=== PATIENT | female | born 1965 | race Caucasian/White ===

== ENCOUNTER 2017-05-13 17:17 | Emergency (ER) | payer BC ==
[2017-05-13 17:44] VITALS: BP 148/80
--- NOTE | 2017-05-13 19:04 | RAD ---
Indication: Right elbow injury. 4 views of the right elbow demonstrates a depressed fracture of the radial head. There is a joint effusion noted. IMPRESSION: Depressed fracture of the anterior half of the radial head. Joint effusion is noted.
--- NOTE | 2017-05-13 19:15 | RAD ---
Indication: Right wrist pain 3 views of the wrist demonstrates no fracture. No other bone or joint abnormality is identified. IMPRESSION: NO FRACTURE OF THE WRIST IS NOTED.
--- NOTE | 2017-05-13 19:15 | UC ---
Elbow Pain - HPI Summary HPI Summary: 52 y/o female presents to the urgent care accompany by Orthopedic DR Fox c/o RT elbow pain and Rt wrist pain s/p falling while ice skating today around 1630pm.. Pt reports she fell backwards. Pain is 5/10, sharp, specially with movement on pronation and supination. Associated with mild swelling and numbness over the RT elbow. Pt applied ice and took Naproxen to alleviate symptoms. Pt deneis fever, SOB, chest pain, abdominal pain, N/V/D. - History of Current Complaint Chief Complaint: UCUpperExtremity Stated Complaint: ARM INJURY Time Seen by Provider: 05/13/17 18:59 Hx Obtained From: Patient Hx Last Menstrual Period: menopausal ?: No Onset/Duration: Hours - 2hrs Severity Initially: Moderate Severity Currently: Moderate Pain Intensity: 5 Pain Scale Used: 0-10 Numeric Location Of Pain: Is Discrete @ - RT [place] dn RT wrist Character: Sharp Aggravating Factor(s): Movement Alleviating Factor(s): Rest, Ice, OTC Meds Associated Signs And Symptoms: Positive: Swelling. Negative: Bruising, Numbness /Tingling - Allergies/Home Medications Allergies/Adverse Reactions: Allergies Allergy/AdvReac Type Severity Reaction Status Date / Time Penicillins Allergy Hair Loss Verified 05/13/17 17:45 ENVIRONMENTAL/SEASONAL Allergy SINUS Uncoded 05/13/17 17:45 HAYFEVER ISSUES PMH/Surg Hx/FS Hx/Imm Hx Previously Healthy: Yes Cardiovascular History: Hypertension Psychological History: Anxiety - Surgical History Surgical History: Yes Surgery Procedure, Year, and Place: TUBAL LIGATION. TONSILS. LEFT KNEE ARTHROSCOPY 2012 - Family History Known Family History: Positive: Cardiac Disease, Hypertension - Social History Occupation: Employed Full-time Lives: With Family Alcohol Use: Occasionally Substance Use Type: None Smoking Status (MU): Former Smoker Review of Systems Constitutional: Negative Skin: Negative Eyes: Negative ENT: Negative Respiratory: Negative Cardiovascular: Negative Gastrointestinal: Negative Genitourinary: Negative Motor: Negative Neurovascular: Negative Musculoskeletal: Decreased ROM - RT elbow s/p fall, Other: - RT elbow pain and RT wrist pain s/p fall Neurological: Negative Psychological: Negative Is Patient Immunocompromised?: No All Other Systems Reviewed And Are Negative: Yes Physical Exam Triage Information Reviewed: Yes Vital Signs: Initial Vital Signs Temp 97.0 F 05/13/17 17:41 Pulse 55 05/13/17 17:41 Resp 16 05/13/17 17:41 BP 148/80 05/13/17 17:41 Pulse Ox 99 05/13/17 17:41 - Additional Comments Vital Signs Reviewed: Yes General: well developed, well nourished female sitting in the examining table w/ o any apparent distress. Eyes: Positive: Conjunctiva Clear - PERRLA, EOMI, ENT: Positive: Normal ENT inspection, Hearing grossly normal, Pharynx normal, TMs normal - B/L, Uvula midline Neck: Positive: Supple, Nontender, No Lymphadenopathy Respiratory: Positive: Chest non-tender, Lungs clear, Normal breath sounds, No respiratory distress, No accessory muscle use Cardiovascular: Positive: RRR, No Murmur, Pulses Normal, Brisk Capillary Refill Abdomen Description: Positive: Nontender, No Organomegaly, Soft. Negative: CVA Tenderness (R), CVA Tenderness (L) Bowel Sounds: Positive: Present Musculoskeletal: Positive: Strength Intact, RT Elbow: The R elbow is with mild deformity on the lateral side when compared to the L elbow. no ecchymosis, mild soft tissue swelling. Point tenderness to palpation of the lateral epicondyle, olecranon,and radial head. No epicondylar or axillary lymphadenopathy. Decreased ROM due to pain. Muscle strength. Intact motor and sensation of ulnar, median, and radial nerves. Neurological: Positive: Alert, Muscle Tone Normal Psychological Exam: Normal Skin Exam: Normal Elbow Pain Course/Dx - Course Course Of Treatment: 52 y/o female presents to the urgent care accompany by Orthopedic DR Fox c/o RT elbow pain and Rt wrist pain s/p falling while ice skating today around 1630pm.. Pt reports she fell backwards. Pain is 5/10, sharp , specially with movement on pronation and supination. Associated with mild swelling and numbness over the RT elbow. Pt applied ice and took Naproxen to alleviate symptoms. Pt deneis fever, SOB, chest pain, abdominal pain, N/V/D. Hx obtained. RT elbow X-ray and RT wrist X-ray ordered. Impressions: RT elbow: Depressed fracture of anterir half of radial head, with joint effusion noted. Rt wrist: No fracture noted. Orhtopedic DR Fox reviewed the X-ray results at the clinic and he recommended to place Pt in a shoulder sling and he will take Pt to his clinic immediately to splint the RT elbow. Pt Rx Naproxen PO for pain.Advised f/u with DR Fox.Pt's BP is elevated today advised to decrease salt in diet, monitor BP and f/u with PCP for further management. Pt understood and agreed with plan of care.Pt left the clinic A&OX3 and hemodynamically stable. - Differential Dx/Diagnosis Differential Diagnosis/HQI/PQRI: Abrasion, Contusion, Fracture (Closed), Fracture (Open), Sprain, Strain, Tendonitis Provider Diagnoses: 1-fracture of the anterior half of the radial head of Rt elbow. 2- RT wrist pain s/p fall - Physician Notification/Consults Discussed Patient Care With: Khanh Fox - DR Fox stated he will take Pt to his clinic for splinting and further treatment. Discharge - Discharge Plan Condition: Stable Disposition: HOME Patient Education Materials: Elbow Fracture (ED), Low-Sodium Diet (ED) Referrals: Khanh Fox MD [Medical Doctor] - As Soon As Possible Tatum Tsang NP [Primary Care Provider] - 1 Week Additional Instructions: 1-Please take Naproxen PO q6-8hrs as directed to alleviate pain and swelling. 2-Please apply ice, keep your shoulder immobilized with the shoulder sling 3- Please f/u with Orthopedic DR Fox for further evaluation and treatment on your radial fracture. 4-Your BP is elevated today. please decrease salt in your diet, monitor BP and if it continues to be elevated please f/u with your PCP for further management
== END 2017-05-13 19:09 | disposition home or self-care (01) ==
LOC: UCEAST 17:17
DX: S52.101A Unspecified fracture of upper end of right radius, initial encounter for closed fracture (principal); W00.0XXA Fall on same level due to ice and snow, initial encounter; Y93.21 Activity, ice skating; Y92.9 Unspecified place or not applicable; Z88.0 Allergy status to penicillin; Z87.891 Personal history of nicotine dependence
CPT/HCPCS: 99212; G0463

== ENCOUNTER 2017-05-18 09:48 | Day surgery (SDC) | payer BC ==
[~2017-05-18 09:48] MED LIST: Buffered Lidocaine 0.9% SYRIN* 5 ML/SYR SYRINGE INTRADERM ONE; Dexamethasone IV* 4 MG/ML 1 ML (4 MG) IV SLOW PU ONE; Famotidine IV* 10 MG/ML 2 ML (20 mg) IV ONE
[2017-05-18] MEDS ORDERED: Dexamethasone IV* 4 MG/ML 1 ML (4 MG) ONE (10:01)
[2017-05-18] MEDS ORDERED: Famotidine IV* 10 MG/ML 2 ML (20 mg) ONE (10:01)
[2017-05-18] MEDS ORDERED: Clindamycin 900 MG IVPREMIX(* 0 MG/0 ML SDV IV ONE (10:02)
[2017-05-18] MEDS ORDERED: Bupivacaine 0.25% SDV* 30 ML ONE (10:07)
[2017-05-18] MEDS ORDERED: Buffered Lidocaine 0.9% SYRIN* 5 ML/SYR SYRINGE ONE (10:32)
[2017-05-18] MEDS ORDERED: fentaNYL* 50 MCG/ML 2 ML VIAL (100 MCG VIAL) ONE (10:45)
[2017-05-18] MEDS ORDERED: KETAMINE HCL* 50 MG/ML 10 ML VIAL ONE (10:45)
[2017-05-18] MEDS ORDERED: Midazolam* 1 MG/ML 2 ML VIAL (2 MG) ONE (10:46)
[2017-05-18] MEDS ORDERED: ceFAZolin 2 GM PREMIX (*) 2 GM/50 ML BAG IVPB ONE (10:52)
[2017-05-18] MEDS ORDERED: Ketorolac INJ* 30 MG/ML 1 ML VIAL ONE (12:07)
[2017-05-18] MEDS ORDERED: Ondansetron INJ* 2 MG/ML VIAL ONE (12:07)
[2017-05-18] MEDS ORDERED: HYDROmorphone INJ* 1 MG/ML CARPUJECT SYRINGE IV PRN (12:12)
[2017-05-18] MEDS ORDERED: Naloxone* 0.4 MG/ML 1 ML VIAL IV PRN (12:12)
[2017-05-18] MEDS ORDERED: fentaNYL* 50 MCG/ML 2 ML VIAL (100 MCG VIAL) IV PRN (12:12)
[2017-05-18] MEDS ORDERED: DiMENhydriNATE IV* 50 MG/ML VIAL IV PUSH PRN (12:12)
[2017-05-18] MEDS ORDERED: ceFAZolin 1 GM VIAL(*) ONE (14:06)
[2017-05-18 15:19] VITALS: BP 125/64
--- NOTE | 2017-05-19 01:42 | OP ---
CC: Khanh Fox MD * DATE OF OPERATION: 05/18/17 - [facility] DATE OF : 61 SURGEON: Montez Jessica MD LACQUER SHADER: Khanh Fox MD. An tourist information assistant was needed for the procedure to aid in positioning of the arm, retraction and instrumentation. ANESTHESIOLOGIST: Dr. De Guzman. ANESTHESIA: General. PRE-OP DIAGNOSES: Right radial head fracture dislocation with intra-articular loose bodies. POST-OP DIAGNOSES: 1. Right radial head fracture dislocation with distal capitellar cartilage defect. 2. Right elbow lateral collateral ligament injury, lateral ulnar collateral ligament avulsion off of the humeral lateral epicondyle. 3. Right elbow loose bodies. OPERATIVE PROCEDURE: 1. Open reduction internal fixation of right radial head fracture with cancellous allograft placement. 2. Repair of right capitellar osteochondral lesion. 3. Excision of right elbow loose bodies. 4. Repair of right elbow lateral ulnar collateral ligament. IMPLANTS: Synthes locking mini-fragment 2.0 mm screw and depuy micro-mitek anchors x 2. ESTIMATED BLOOD LOSS: 5 mL. COMPLICATIONS: None. FINDINGS: There is a large over 1 x 1 cm full-thickness cartilage delamination off of the distal radial capitellum. This piece of cartilage was sitting in the joint space anteriorly in the coronoid fossa. The lateral ulnar collateral ligament was avulsed off of the humeral epicondyle. DESCRIPTION OF PROCEDURE: Kira was seen in the preoperative holding area, the correct side, site, and procedure were identified. We came back to the operating room where the arm was scrubbed and then prepped and draped in the usual fashion. A time-out was performed. I began by making a lateral incision centered over the epicondyle, extending distally over the equator of the radio-capitellar joint and proximally oblong the supracondylar ridge. Dissection was carried down to full thickness. Flaps are raised off of the fascia. I identified the margin between the EDC and the ECRL and I made an incision through the fascia along that plane strain anterior to the equator of the radiocapitellar joint and the equator to the epicondyle. The dissection was carried down. The lateral ulnar collateral ligament origin was seen to have avulsed off of the epicondyle. The annular ligament with split , the radiocapitellar joint was identified, there was quite a bit of fracture hematoma and this was all suctioned out. The loose bodies in the anterior joint were removed with the Debakey forceps and irrigation. I then came proximally and released the soft tissue off of the supracondylar ridge laterally and elevated the joint capsule anteriorly. This provided a view across the anterior elbow joint. The large cartilage fragment seen on the CT scan was visualized. This was retrieved out and placed in a cup with some saline in it. A couple of other loose bodies which were full-thickness cartilage pieces too small to be repaired were removed as well. At this point, we went ahead and booked open the lateral side of the joint. The radial head fracture was seen. I went ahead and got rid all of the hematoma and used the microcurette to clean up the edges of the full-thickness cartilage defect off the capitellum. Once I had nice clean margins, I was able to reduce the cartilage piece back onto the defect. The difficulty here was in securing the piece, I myself together with Dr. Fox we decided the best thing would be for her in view of microfracture, some other form of joint salvage would be to try to see if we could replace the cartilage piece as there was a very small bit of bone on the deep surface of the cartilage piece and we thought may be able to get some bone to bone healing. I went ahead and placed two micro Mitek suture anchors in the cartilage defect. The suture was then passed through the cartilage piece and first the proximal and the distal suture anchor were tied off in horizontal mattress fashion. This reduced the piece down to the bone very nicely and in very nice position reduction case. Once we had that sewn down, I placed a couple of [id number] 4-0 Ethibond sutures on the periphery just to tack down the edge, the lateral edge of that cartilage piece and to further secure it. The piece was now very nicely fixed. At this point, I went ahead and removed all of the fracture hematoma around the radial head fracture. I took an osteotome and mobilized the very depressed piece. Once I had reduced the fragment, I pinned it back in place with a 1.0 mm K-wire. In the depth that had been created by the impaction, I packed cancellous chips until it had secured the fragment in the elevated position. I then removed the K-wire. I had Dr. Fox hold the fragment down in the reduced position while I drilled with a 1.5 mm drill bit across the subchondral bone. I then countersunk and placed a first 22 mm 2.0 mm screw subchondrally to wrap that piece and compress it. This was just a bit long, so I swapped it for an 18 mm screw. There was excellent bite across the subchondral bone, it was just right through the subchondral bone and actually held and compressed the fragment very nicely. At this point, the radial head was nicely reduced and stable, may be there was a 1 mm stepoff, but it was very nicely reduced otherwise. The bone graft could be nicely impacted into place. All that was left was to repair the lateral ulnar collateral ligament. I took my 2.0 mm drill bit and at began at the origin of the LUCL, I drilled out 1 hole through the anterolateral humeral cortex and the second drill hole at the posterolateral humeral cortex. I passed a Hewson suture passer through the drill holes and then brought one 3-0 Prolene back through the anterior drill hole and the second back to the posterior drill hole. These were then clamped off. I then took a #2 FiberWire and placed a whipstitch along the length of the LUCL. The whipstitch was pulled nice and tight and then I took 1 tail of the #2 FiberWire out the anterior drill hole and went out the posterior drill hole. I pulled appropriate tension and this nicely apposed the LUCL back to humeral epicondyle. The FiberWire was then tied off over a bone ridge over the supracondylar ridge completing the lateral ulnar collateral ligament repair. At this point, we copiously irrigated out the wound and the joint. The deep fascia was repaired in a single layer with 0-Vicryl [id number] sutures, subcutaneous was reapproximated with 3-0 Vicryl. Skin was closed with 4-0 Monocryl and Steri-Strips. The wound was infiltrated with 0.25% plain Marcaine. The elbow was very stable through a full motion arc, including pronation and supination there was absolutely no clicking or catching or mechanical type issues. Final fluoroscopic images showed a nice length and position of the screw. There was maybe 1 mm stepoff at the joint, but certainly it was very nicely aligned. The wound was then dressed with 4x4'sm sterile Webril and a sugar-tong splint was applied and the tourniquet was deflated. Tourniquet had been at 250 mm throughout the case and total tourniquet time was about 120 minutes. The hand pinked up immediately. She was woken up and taken to recovery room in stable condition. cc: Khanh Fox MD [id number]/[facility] #: [id number] GURVINDER
--- NOTE | 2017-05-20 14:53 | RAD ---
CPT II Codes: 6045F INDICATION: Left elbow fracture TECHNIQUE: Intraoperative fluoroscopy was provided during medullary screw ORIF. FINDINGS: 3 spot views of the left elbow defect anatomic placement of a right radial head medullary screw and 2 small medullary fixation devices overlying the lateral condyle. The visualized bones are properly aligned. Fluoroscopy time: 21 seconds IMPRESSION: As above.
== END 2017-05-18 15:13 | disposition home or self-care (01) ==
LOC: OREAST 09:48
PROVIDERS: ATTEND Orthopaedic Surgery Hand Surgery
DX: S52.121A Displaced fracture of head of right radius, initial encounter for closed fracture (principal); S53.441A Ulnar collateral ligament sprain of right elbow, initial encounter; M24.021 Loose body in right elbow; V00.211A Fall from ice-skates, initial encounter; Y93.21 Activity, ice skating; Y92.830 Public park as the place of occurrence of the external cause; I10 Essential (primary) hypertension; I44.7 Left bundle-branch block, unspecified
CPT/HCPCS: 76000; C1713; C1776; J0690; J1100; J1885; J2250; J2405; J3010

== ENCOUNTER 2020-03-04 08:18 | Inpatient (IN) ==
[2020-03-04] MEDS ORDERED: Magnesium Hydroxide LIQ 30 ML UDC PO PRN (12:04)
[2020-03-04] MEDS: Senna TAB 8.6 mg TAB PO PRN (20:49)
[2020-03-04] MEDS: Enoxaparin 30 MG/0.3 ML SYR SUBCUT SCH (20:50)
[2020-03-05 07:01] LABS: Hematocrit 24 % (35-47); Hemoglobin 8.4 g/dL (12.0-16.0); Mean Corpuscular HGB Conc 35 g/dL (31-36); Mean Corpuscular Hemoglobin 31 pg (27-31); Mean Corpuscular Volume 88 fL (80-97); Mean Platelet Volume 6.8 fL (7.4-10.4); Platelet Count 530 10^3/uL (150-450); Red Blood Count 2.76 10^6 /uL (3.70-4.87); Red Cell Distribution Width 15 % (10-15); White Blood Count 9.2 10^3/uL (3.5-10.8)
[2020-03-05 07:17] LABS: Albumin 3.6 g/dL (3.2-5.2); Albumin/Globulin Ratio 1.4 (1-3); BUN/Creatinine Ratio 28.1 (8-20); Calcium 8.7 mg/dL (8.6-10.3); EGFR African American 132.3 (>60); EGFR Non-African American 109.3 (>60); Globulin 2.5 g/dL (2-4); Potassium 3.5 mmol/L (3.5-5.0); Total Bilirubin 1.2 mg/dL (0.2-1.0); Total Protein 6.1 g/dL (6.4-8.9)
[2020-03-05] MEDS: Enoxaparin 30 MG/0.3 ML SYR SUBCUT SCH ×2 (07:23→21:07)
[2020-03-05 08:46] LABS: ABS Basophils 0.1 10^3/ul (0-0.2); ABS Eosinophils 0.3 10^3/ul (0-0.6); ABS Lymphocytes 2.1 10^3/ul (1.0-4.8); ABS Monocytes 0.8 10^3/ul (0-0.8); ABS Neutrophils 5.9 10^3/ul (1.5-7.7); Eosinophil % 3.1 %; Lymphocyte % 22.4 %; Nucleated Red Blood Cells % 0.3
[2020-03-05] MEDS: Senna TAB 8.6 mg TAB PO PRN (21:07)
[2020-03-06] MEDS: Enoxaparin 30 MG/0.3 ML SYR SUBCUT SCH ×2 (09:25→21:10)
[2020-03-06] MEDS: Senna TAB 8.6 mg TAB PO PRN (21:10)
[2020-03-07] MEDS ORDERED: Famotidine IV 10 MG/ML 2 ml VIAL (20 mg) IV ONE (06:00)
[2020-03-07] MEDS ORDERED: Buffered Lidocaine 1% SYRIN 1 ml INTRADERM ONE (06:00)
[2020-03-07] MEDS ORDERED: Lactated Ringers 1000 ml BAG 1,000 ML IV SCH (06:00)
[2020-03-07 08:01] LABS: Albumin 3.4 g/dL (3.2-5.2); Albumin/Globulin Ratio 1.4 (1-3); BUN/Creatinine Ratio 26.8 (8-20); Calcium 8.5 mg/dL (8.6-10.3); EGFR Non-African American 111.6 (>60); Globulin 2.5 g/dL (2-4); Indirect Bilirubin 0.9 mg/dL (0.3-1.0); Potassium 4.1 mmol/L (3.5-5.0); Total Protein 5.9 g/dL (6.4-8.9)
[2020-03-07] MEDS: Enoxaparin 30 MG/0.3 ML SYR SUBCUT SCH ×2 (10:46→20:19)
[2020-03-07] MEDS: Senna TAB 8.6 mg TAB PO PRN (20:19)
[2020-03-08] MEDS: Enoxaparin 30 MG/0.3 ML SYR SUBCUT SCH ×2 (08:04→20:51)
[2020-03-08] MEDS: Senna TAB 8.6 mg TAB PO PRN (20:59)
[2020-03-09] MEDS: Enoxaparin 30 MG/0.3 ML SYR SUBCUT SCH ×2 (08:40→20:13)
[2020-03-09] MEDS: Senna TAB 8.6 mg TAB PO PRN (20:11)
[2020-03-10] MEDS: Enoxaparin 30 MG/0.3 ML SYR SUBCUT SCH ×2 (08:29→20:26)
[2020-03-11 06:07] VITALS: BP 122/65
[2020-03-11] MEDS: Enoxaparin 30 MG/0.3 ML SYR SUBCUT SCH (09:13)
== END 2020-03-11 15:26 | disposition home health service (06) | DRG 860 ==
LOC: PMRU 10:50
PROVIDERS: ADMIT Physical Medicine & Rehabilitation; ATTEND Physical Medicine & Rehabilitation